=== PATIENT | male | born 2000 | race Hispanic/Latino ===

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

== ENCOUNTER 2023-05-24 14:56 | Emergency (ER) | payer BC, SELFPAY ==
--- NOTE | 2023-05-24 15:09 | ED.SKABFB ---
HPI - Skin/Abscess/Foreign Bdy General Chief complaint: Skin/Abscess/Foreign Body Stated complaint: CYST Time Seen by Provider: 05/24/23 15:12 Source: patient and RN notes reviewed Mode of arrival: ambulatory Limitations: dementia History of Present Illness HPI narrative: 22-year-old male presents with concern for draining pilonidal cyst. Reports he was seen by his radiographer cardiac catheterization for a cyst and was given minocycline which he has been on about 3 days, reports the cyst started draining today. Reports he called the nurse hotline and they told him to have the area evaluated. He denies any fever, chills, aches, sweats. He denies worsening pain. He reports purulent drainage MD complaint: other (Redness) Related Data Home Medications Medication Instructions Recorded Confirmed minocycline 100 mg tablet 100 mg PO BID 05/24/23 05/24/23 Allergies Allergy/AdvReac Type Severity Reaction Status Date / Time No Known Allergies Allergy Verified 05/24/23 15:18 Review of Systems Review of Systems: CONSTITUTIONAL: Denies malaise, chills, sweats, or fever. EYES: Denies redness, or discharge. ENT: Denies rhinorrhea, congestion, swollen lips, swollen tongue CARDIOVASCULAR: Denies chest pain, palpitations, or edema. RESPIRATORY: Denies cough or dyspnea. GASTROINTESTINAL: Denies abdominal pain, nausea, vomiting SKIN: Reports drainage from the pilonidal cyst. Pain beyond proportion MUSCULOSKELETAL: Denies joint pain or myalgia. NEUROLOGIC: Denies headache. All systems reviewed & are unremarkable except as noted in HPI and below PMFSH Past Medical History Medical History (Updated 05/24/23 @ 15:20 by Traci Norton NP) Left wrist fracture Surgical History Surgical History (Updated 11/11/20 @ 15:12 by BRANNON Meeks) History of orthopedic surgery Social History Social History Smoking status: Never smoker Substance use: former Gender identity (if verbalized by the patient): Male Comments At time of signature, agree with nursing past medical, surgical, social and family history. There is no relevant family history pertinent to the presenting complaint Exam Narrative: GENERAL: Well-appearing, well-nourished, and in no acute distress. HEAD: Normocephalic, atraumatic. EYES: PERRLA, conjunctivae clear ENT: Mucous membranes moist. NECK: Supple. No lymphadenopathy CHEST: Clear to auscultation. No respiratory distress. HEART: Regular rate and rhythm. SKIN: Warm, dry. Erythema, induration, tenderness, warmth with sharp margins noted to the right inner buttock, purulent discharge noted. No vesicles, bullae, necrosis, ecchymosis, crepitus noted. NEURO: Alert and oriented x3. PSYCH: Normal mood and affect Back/Spine/Pelvis: Back/spine/pelvis image: 1. Approximately 4 cm x 2 cm area of in duration, erythema, warmth without fluctuation noted to the right inner buttock, purulent drainage noted from likely pilonidal cyst Course Course Emergency Course: Patient is aware of diagnosis, understands and agrees to treatment plan. Anticipatory guidance given. Patient agrees to follow-up as directed and is aware of reasons to seek care at the emergency department. Portions of this record may have been created with voice recognition software Level of Care: Express Care Visit Vital Signs Vital signs: Reviewed. MDM - Skin/Abscess/Foreign Bdy MDM Narrative Medical decision making narrative: Does not appear at this time to be erythema multiforme, bullous, SJS, TEN; no evidence at this time to suggest RMSF, NSTI, endocarditis or Lyme disease; patient looks well, nontoxic and is tolerating oral intake; no neurologic signs or symptoms; no headache, photophobia or neck pain; afebrile. Patient does not have history of of penetrating trauma, laceration, blunt trauma, recent surgery, immunosuppression, malignancy, obesity, alcoholism, corticosteroid use. Discussed t
[2023-05-24 15:11] VITALS: BP 144/105; PULSE 99; RESP 16; TEMP 37.2; O2SAT 98
== END 2023-05-24 15:26 | disposition home or self-care (01) ==
PROVIDERS: Emergency Provider Nurse Practitioner; PCP Nurse Practitioner
DX: L05.01 Pilonidal cyst with abscess (principal)
CPT/HCPCS: 99211; G0463